=== PATIENT | female | born 1955 | race Caucasian/White ===

== ENCOUNTER 2022-02-07 10:26 | Inpatient (IN) | payer MEDICARE, OTHER, BC, SELFPAY ==
[2022-02-07] VITALS (21 sets, daily range): BP systolic 110–175; BP diastolic 55–113; PULSE 70–87; RESP 13–20; TEMP 36.3–37.1; O2SAT 90–99; BMI 33.0; BMI 34.0
--- NOTE | 2022-02-07 | SCC_ITS ---
Procedure done: Open reduction internal fixation left intertrochanteric and subtrochanteric femur fractures with bone biopsy 301.0 seconds of fluoroscopic guidance, for a cumulative dose of 48.14 mGy, was provided to Dr. Harper by the radiology department. C-arm images of the LEFT hip were saved for the patient's permanent record. [id number]
--- NOTE | 2022-02-07 10:44 | CTR_ITS ---
PROCEDURE INFORMATION: Exam: CT Head Without Contrast Exam date and time: 02/07/2022 11:19 AM Age: 66 years old Clinical indication: Injury or trauma; Fall; Blunt trauma (contusions or hematomas); Without loss of consciousness; Additional info: Closed head injury TECHNIQUE: Imaging protocol: Computed tomography of the head without contrast. Axial, coronal and sagittal reformatted images were created and reviewed. Radiation optimization: All CT scans at this facility use at least one of these dose optimization techniques: automated exposure control; mA and/or kV adjustment per patient size (includes targeted exams where dose is matched to clinical indication); or iterative reconstruction. COMPARISON: No relevant prior studies available. RADIATION DOSE METRICS: Total DLP (mGy-cm): 835.09 FINDINGS: Brain: Patchy and confluent areas of hypoattenuation in the periventricular and subcortical white matter, consistent with chronic small vessel ischemic disease. Focal, well-circumscribed hypodensity in the left inferior basal ganglia, consistent with a dilated perivascular space or chronic lacunar infarct. No CT evidence of acute intracranial hemorrhage or acute territorial infarction. No significant mass effect or midline shift. Basal cisterns patent. Cerebral ventricles: Prominence of the cortical sulci, cisterns and ventricular system, consistent with cerebral and cerebellar volume loss. Paranasal sinuses: Mild ethmoid mucosal thickening. No fluid levels. Mastoid air cells: Grossly unremarkable. Vasculature: Mild calcific atherosclerotic disease in the cavernous internal carotid arteries, as well as the vertebro-basilar system. Bones/joints: No acute osseous abnormality. Soft tissues: Grossly unremarkable. CT/CT head wo con* [id number] IMPRESSION: 1. No CT evidence of acute intracranial pathology. 2. Additional findings, as above.
--- NOTE | 2022-02-07 10:44 | XR_ITS ---
WS: [id number] Left hip, 2 views, 02/07/2022 Clinical Data: pain Comparison: None. Findings: There is a comminuted intertrochanteric fracture of the left hip. The left femoral head remains in th e acetabulum. The adjacent left pelvis shows no fractures. The left SI joint in the pubic symphysis a re normal. The soft tissues are normal. XR/XR hip LT 2-3V wo/w pel* [id number] Impression: Comminuted intertrochanteric fracture of the left hip.
--- NOTE | 2022-02-07 10:44 | CTR_ITS ---
PROCEDURE INFORMATION: Exam: CT Cervical Spine Without Contrast Exam date and time: 02/07/2022 11:23 AM Age: 66 years old Clinical indication: Injury or trauma; Fall; Blunt trauma TECHNIQUE: Imaging protocol: Computed tomography images of the cervical spine without contrast. Axial, coronal and sagittal reformatted images were created and reviewed. Radiation optimization: All CT scans at this facility use at least one of these dose optimization techniques: automated exposure control; mA and/or kV adjustment per patient size (includes targeted exams where dose is matched to clinical indication); or iterative reconstruction. COMPARISON: CT head wo con* [id number] 02/07/2022 11:19 AM RADIATION DOSE METRICS: Total DLP (mGy-cm): 828.64 FINDINGS: Bones/joints: Straightening of the normal cervical lordosis. No CT evidence of acute fracture, dislocation or subluxation. Alignment anatomic. Vertebral body heights maintained. Discs/Spinal canal/Neural foramina: Mild multilevel degenerative changes, characterized by disc space narrowing, osteophytosis and uncovertebral and facet joint hypertrophy. No significant spinal canal stenosis. Mild neural foraminal narrowing at C5-C6 and C6-C7 on the right. Lungs: Grossly unremarkable. Soft tissues: Grossly unremarkable. CT/CT cervical spin wo con* [id number] IMPRESSION: 1. No CT evidence of acute cervical spine traumatic injury. 2. Additional findings, as above.
--- NOTE | 2022-02-07 10:48 | ED_ITS ---
HPI - Fall General: Chief Complaint: Fall Stated Complaint: fall from horse/ L leg injury Time Seen by Provider: 02/07/22 10:29 Source: patient Mode of arrival: EMS Limitations: no limitations History of Present Illness: 66-year-old female was thrown from a horse this morning complaining of left hip pain low back discomfort. She is was wearing a helmet she does not strike her head there is no loss consciousness c-collar placed on arrival here. Obvious deformity of the left leg consistent with left hip fracture MD complaint: fall Onset (ago): minute(s) Fall from: other (thrown from a horse) Fall witnessed: no Loss of consciousness: None Length of LOC: second(s) Prolonged down time: no Symptoms prior to fall: none Context: other (thrown from horse) Location of injury: head Severity: severe Associated symptoms-after fall: Denies abdominal pain or chest pain Review of Systems Const: Denies: fever(s), chills, body aches, change in appetite, fatigue or malaise ENMT: Denies: throat pain, ear or mastoid pain, nasal discharge or nasal congestion Card: Denies: chest pain, edema, dyspnea on exertion or orthopnea Resp: Denies: dyspnea, productive cough or non-productive cough GI: Denies: abdominal pain, nausea, vomiting, hematemesis, coffee ground emesis, diarrhea, constipation, bloating, hematochezia or melena : Denies: flank pain, difficulty voiding, dysuria, urinary frequency or urinary urgency Skin/Breast: Denies: rash or pruritus PFSH ED PFSH: Medical History Arthritis involving multiple sites GERD (gastroesophageal reflux disease) 0 Jose Juan's disease Hypothyroidism Obstructive sleep apnea on CPAP Sjogrens syndrome Surgical History History of lumpectomy of left breast S/P left knee arthroscopy meniscal tear Family History Mother CAD (coronary artery disease) Diabetes Lung disease asthma, smoked Hypothyroidism Father Alzheimer's dementia Hypertension Social History Smoking and tobacco status: never smoked Alcohol intake: never Substance/Drug Use: never Physical Exam Const: COMMON NORMALS: no acute distress GENERAL APPEARANCE: cooperative a nd comfortable ORIENTATION/CONSCIOUSNESS: Yes awake, Yes oriented to person, Yes oriented to place and Yes oriented to time HENMT: COMMON NORMALS: normocephalic, atraumatic, hearing grossly normal bilaterally, external ears normal, EAC's normal, TM's normal bilaterally, Normal nasal mucous membranes and turbinates present, moist oral mucous membranes and oropharynx normal HEAD & SCALP: normocephalic and atraumatic NOSE: Normal nasal mucous membranes and turbinates present EXTERNAL EAR: Yes external ears normal EXTERNAL AUDITORY CANAL: EAC's normal TYMPANIC MEMBRANE: TM's normal bilaterally Neck/C-Spine: COMMON NORMALS: no JVD Resp: COMMON NORMALS: normal respiratory effort, No retractions, No use of accessory muscles and clear to auscultation bilaterally AUSCULTATION: clear to auscultation bilaterally Cardio: COMMON NORMALS: no JVD, regular rate, regular rhythm and No murmurs present (Cardio) RATE: regular rate RHYTHM: regular rhythm GI: COMMON NORMALS: Soft to palpation and No hepatosplenomegaly present AUSCULTATION: Yes normoactive bowel sounds PALPATION: Yes Soft to palpation, No Tenderness to palpation present (GI), No Guarding due to palpation present (GI) and Yes No hepatosplenomegaly present Extremity: OTHER: Externally rotated left hip with significant shortening dorsalis pedis pulse posterior tibialis pulse palpable capillary refill good neurovascularly intact Neuro: SENSORIUM/ORIENTATION: Yes oriented to person, Yes oriented to place and Yes oriented to time Skin: COMMON NORMALS: no rashes or lesions noted GENERAL SKIN EXAM: no rashes or lesions noted Course Vital Signs: Vital signs: Vital Signs Temperature 97.6 F 02/08/22 08:00 Pulse Rate 77 02/08/22 08:00 Respiratory Rate 20 H 02/08/22 08:22 Blood Pressure 112/67 02/08/22 08:00 Pulse Oximetry 98 02/08/22 08:00 MDM - Fall Medical Decision Making Left intertrochanteric hip fracture comminuted. No other injuries. Discussed with hospitalist and with Ortho orders written. Medical Records I reviewed the patient's medical records. Lab Data I reviewed the patient's lab results. : 02/08/22 02:48 02/08/22 02:48 Radiology Impressions Cervical Spine CT 02/07/22 10:[address]: [address] evidence of acute cervical spine traumatic injury. 2. Additional findings, as above. Head CT 02/07/22 10:[address]: 1[address] evidence of acute intracranial pathology. 2. Additional findings, as above. Hip/Pelvis X-Ray 02/07/22 10:44 Impression: Comminuted intertrochanteric fracture of the left hip. Laboratory Results WBC 5.8 10^3/uL (4.0-10.0) 02/07/22 10:32 RBC 4.66 10^6/uL (4.1-5.3) 02/07/22 10:32 Hgb 13.2 g/dL (11.5-15.3) 02/07/22 10:32 Hct 39.7 % (37.0-47.0) 02/07/22 10:32 MCV 85.2 fl (81-99) 02/07/22 10:32 MCH 28.3 pg (28.0-34.0) 02/07/22 10:32 MCHC 33.2 g/dL (30.0-36.0) 02/07/22 10:32 RDW 12.4 % (12.1-15.1) 02/07/22 10:32 Plt Count 148 10^3/cmm (130-400) 02/07/22 10:32 MPV 10.4 fL (7.4-10.4) 02/07/22 10:32 Neut % (Auto) 82.7 % 02/07/22 10:32 Lymph % (Auto) 9.7 % 02/07/22 10:32 [place] % (Auto) 5.9 % 02/07/22 10:32 Eos % (Auto) 0.5 % 02/07/22 10:32 Baso % (Auto) 0.2 % 02/07/22 10:32 Neut # (Auto) 4.76 10^3/uL (1.8-7.7) 02/07/22 10:32 Lymph # (Auto) 0.6 10^3/uL (0.8-4.8) L 02/07/22 10:32 [place] # (Auto) 0.3 10^3/uL (0.2-0.9) 02/07/22 10:32 Eos # (Auto) 0.0 10^3/uL (0.0-0.8) 02/07/22 10:32 Baso # (Auto) 0.0 10^3/uL (0.0-0.1) 02/07/22 10:32 Nucleated RBC % (auto) 0 % 02/07/22 10:32 Nucleated RBCs # 0.0 /100WBC 02/07/22 10:32 PT 13.50 SECONDS (12.1-14.9) 02/07/22 11:42 INR 1.00 (0.8-1.2) 02/07/22 11:42 APTT 33.3 SECONDS (23.9-36.7) 02/07/22 11:42 Sodium 139 mmol/L (136-145) 02/07/22 10:32 Potassium 4.1 mmol/L (3.5-5.1) 02/07/22 10:32 Chloride 104 mmol/L (98-107) 02/07/22 10:32 Carbon Dioxide 27 mmol/L (22-29) 02/07/22 10:32 Anion Gap 12.1 (5-19) 02/07/22 10:32 BUN 16 mg/dL (8-23) 02/07/22 10:32 Creatinine 0.7 mg/dL (0.5-0.9) 02/07/22 10:32 GFR Calculation 83.7 mL/min (90-130) L 02/07/22 10:32 Glucose 102 mg/dL (65-115) 02/07/22 10:32 Calculated Osmolality 289 mOsm/kg (285-295) 02/07/22 10:32 Calcium 8.6 mg/dL (8.5-10.5) 02/07/22 10:32 Total Bilirubin 0.3 mg/dL (0.15-1.2) 02/07/22 10:32 AST 30 U/L (0-32) 02/07/22 10:32 ALT 29 U/L (0-33) 02/07/22 10:32 Alkaline Phosphatase 103 IU/L (35-105) 02/07/22 10:32 Total Protein 7.6 g/dL (6.6-8.7) 02/07/22 10:32 Albumin 4.8 g/dL (3.5-5.2) 02/07/22 10:32 Globulin 2.8 g/dL (1.3-4.6) 02/07/22 10:32 Discharge Plan Discharge Patient Disposition: Admitted As Inpatient Admit Provider: Day Vargas Clinical Impression: Closed intertrochanteric fracture of left hip, Sjogrens syndrome, Hypothyroidism, Obstructive sleep apnea on CPAP, Fall from horse Condition: Stable Coding Level of Care Code ED Artists' Model for Sobeida Vigil
[2022-02-07 10:53] LABS: Basophils % 0.2 %; Eosinophils % 0.5 %; Hematocrit 39.7 % (37.0-47.0); Hemoglobin 13.2 g/dL (11.5-15.3); Lymphocytes # 0.6 10^3/uL (0.8-4.8); Lymphocytes % 9.7 %; Mean Corpuscular HGB Conc 33.2 g/dL (30.0-36.0); Mean Corpuscular Hemoglobin 28.3 pg (28.0-34.0); Mean Corpuscular Volume 85.2 fl (81-99); Mean Platelet Volume 10.4 fL (7.4-10.4); Monocytes # 0.3 10^3/uL (0.2-0.9); Monocytes % 5.9 %; Neutrophils # 4.76 10^3/uL (1.8-7.7); Neutrophils % 82.7 %; Nucleated Red Blood Cells % 0 %; Platelet Count 148 10^3/cmm (130-400); Red Blood Count 4.66 10^6/uL (4.1-5.3); Red Cell Distribution Width 12.4 % (12.1-15.1); White Blood Count 5.8 10^3/uL (4.0-10.0)
[2022-02-07] MEDS: morphine 4 mg/mL SDV 1 mL IVP (10:55)
[2022-02-07] MEDS: ondansetron 2 mg/ML SDV 2 mL 4 MG IVP (10:56)
--- NOTE | 2022-02-07 11:20 | ECG_ITS ---
Test Date: 2022-02-07 Pat Name: Joselyn Valdez Department: Room: Gender: Female Soil Specialist: : 1955 Requested By: Altaf Dozier Order Number: [id number] Saeed MD: Lucien Reyes M.D. Measurements Intervals [place] Rate: 72 P: 42 FL: 154 QRS: 0 QRSD: 87 T: 11 QT: 365 QTc: 400 Interpretive Statements SINUS RHYTHM LOW QRS VOLTAGE IN PRECORDIAL LEADS [QRS DEFLECTION < 1.0 mV IN CHEST LEADS] No previous ECG available for comparison Electronically Signed On 02-07-2022 16:53:33 CDT by Lucien Reyes M.D. [id number]
[2022-02-07 11:23] LABS: Alanine Aminotransferase 29 U/L (0-33); Albumin Level 4.8 g/dL (3.5-5.2); Alkaline Phosphatase 103 IU/L (35-105); Anion Gap 12.1 (5-19); Aspartate Amino Transferase 30 U/L (0-32); Blood Urea Nitrogen 16 mg/dL (8-23); Calcium 8.6 mg/dL (8.5-10.5); Carbon Dioxide 27 mmol/L (22-29); Chloride 104 mmol/L (98-107); Creatinine Clr Calc Pharmacy 65.9921; Globulin 2.8 g/dL (1.3-4.6); Glomerular Filtration Rate 83.7 mL/min (90-130); Glucose 102 mg/dL (65-115); Osmolality Calculated 289 mOsm/kg (285-295); Potassium 4.1 mmol/L (3.5-5.1); Sodium 139 mmol/L (136-145); Total Bilirubin 0.3 mg/dL (0.15-1.2); Total Protein 7.6 g/dL (6.6-8.7)
--- NOTE | 2022-02-07 11:28 | PC.PHAR ---
pt states she takes care of her own medications- pt states she takes the medications entered-pt states she gets her meds from the [facility] in [place] [phone] waiting for [facility] to fax med list
[2022-02-07 12:16] LABS: Partial Thromboplastin Time 33.3 SECONDS (23.9-36.7)
[2022-02-07] MEDS: morphine 4 mg/mL SDV 1 mL 6 MG IVP (12:54)
--- NOTE | 2022-02-07 12:59 | PC.NURSE ---
Physician verbally approved request to remove C collar. C spine clear. C collar removed at this time.
--- NOTE | 2022-02-07 14:31 | PM.CONSULT ---
Providers/Reason For Consult Consulting Physician/Specialty*: Joselyn Harper MD Reason for Consult*: Left hip intertrochanteric fracture Requesting Physician: Altaf Ya MD Attending Physician: Joselyn Harper MD History of Present Illness History of Present Illness Joselyn Valdez is a 66 year old female presented by ambulance to the emergency department after being thrown from a horse. The patient presented with inability to ambulate and significant pain in her left lower extremity. She is uncertain as to whether or not the horse bucked her off, but she describes landing on her hip unable to move her right left lower extremity. She had severe pain and the EMS was called. She was admitted to the hospitalist team as she does have obstructive sleep apnea for which she uses a sleep apnea. She has hypothyroidism, and she also has a history of Sjogren's syndrome. I was consulted with regards to her left comminuted intertrochanteric hip fracture. Review of Systems Const: Denies: fever(s) or chills Eyes: Reports: dry eyes ENMT: Reports: dry mouth and nasal congestion (Allergy symptoms) Card: Denies: chest pain, palpitations, edema, syncope, dyspnea on exertion or orthopnea Resp: Denies: dyspnea, productive cough or non-productive cough GI: Denies: abdominal pain, nausea, vomiting, diarrhea, constipation or hematochezia : Denies: difficulty voiding Musc: Reports: extremity pain (Left lower extremity and hip pain), joint pain (Improving right elbow pain, had MRI within the last couple months) and other (Hands, knees and low back involvement with arthritis) Skin/Breast: Reports: dry skin Neuro: Denies: weakness in extremities, sensory changes or difficulty walking (Prior to fracturing her hip) Psych: Denies: memory loss Kenn/Lymph: Denies: easy bruising or easy bleeding Medications/Allergies Home Medications Medication Instructions Recorded Confirmed Last Taken Type [place] 3 1 cap PO DAILY 02/07/22 02/07/22 Unknown History acetaminophen 500 mg tablet 1,000 mg PO BID 02/07/22 02/07/22 Unknown History bacillus coagulans-inulin 1 2 cap PO DAILY 02/07/22 02/07/22 Unknown History billion cell-250 mg capsule (Probiotic with Prebiotic) coenzyme Q10 100 mg capsule 100 mg PO DAILY 02/07/22 02/07/22 Unknown History (CoQ-10) glucosamine-chondroitin 250 mg-200 2 tab PO DAILY 02/07/22 02/07/22 Unknown History mg tablet (Osteo Bi-Flex) levothyroxine 112 mcg tablet 112 mcg PO QAM 02/07/22 02/07/22 Unknown History (Synthroid) loratadine 10 mg tablet (Claritin) 10 mg PO DAILY 02/07/22 02/07/22 Unknown History magnesium oxide 400 mg PO BEDTIME 02/07/22 02/07/22 Unknown History multivitamin with minerals-folic 2 tab PO DAILY 02/07/22 02/07/22 Unknown History acid 200 mcg chewable tablet (Adult Multivitamin Gummies) naproxen 375 mg tablet 375 mg PO BID 02/07/22 02/07/22 Unknown History omeprazole 20 mg capsule,delayed 20 mg PO DAILY 02/07/22 02/07/22 Unknown History release vit C 250 mg-vit E 90 mg-zinc 40 1 tab PO BID 02/07/22 02/07/22 Unknown History mg-copper 1 rl-blbldm-qehdle capsule (PreserVision AREDS-2) Allergies Allergy/AdvReac Type Severity Reaction Status Date / Time sulfamethoxazole Allergy ALGY-Anaphy Verified 02/07/22 11:06 [From Bactrim] laxis trimethoprim [From Bactrim] Allergy ALGY-Anaphy Verified 02/07/22 11:06 laxis PFSH Acute PFSH: Medical History Arthritis involving multiple sites GERD (gastroesophageal reflux disease) 0 Jose Juan's disease Hypothyroidism Obstructive sleep apnea on CPAP Sjogrens syndrome Surgical History History of lumpectomy of left breast S/P left knee arthroscopy meniscal tear Family History Mother CAD (coronary artery disease) Diabetes Lung disease asthma, smoked Hypothyroidism Father Alzheimer's dementia Hypertension Social History Smoking and tobacco status: never smoked Alcohol intake: never Substance/Drug Use: never Vitals/I&O/Wt Last Vital Signs Temp 97.9 F 02/07/22 10:29 Pulse 75 02/07/22 10:41 Resp 16 02/07/22 12:54 BP 111/66 02/07/22 13:00 Pulse Ox 94 02/07/22 13:00 Weight last 48 hrs Weight 175 lb Physical Exam Const: COMMON NORMALS: no acute distress, average body habitus, patient oriented x3 and alert GENERAL APPEARANCE: cooperative and comfortable ORIENTATION/CONSCIOUSNESS: Yes awake HENMT: COMMON NORMALS: normocephalic and atraumatic HEAD & SCALP: normocephalic and atraumatic Eye: GENERAL EYE: appearance normal, both eyes and all related structures Chest: COMMONS NORMALS: normal inspection of the chest Resp: COMMON NORMALS: normal respiratory effort EFFORT & INSPECTION: Yes able to speak in complete sentences and Yes symmetric chest movement Extremity: LEFT LOWER EXTREMITY: Yes hip joint (Shortened and externally rotated lower extremity) Left hip: Yes inspection (No significant bruising.), Yes palpation (Tender to palpation.), Yes ROM (Not evaluated secondary to fracture.) and Yes neurovascular exam (Intact distally.) Neuro: COMMON NORMALS: patient oriented x3 SENSORIUM/ORIENTATION: Yes alert Psych: COMMON NORMALS: mental status grossly normal APPEARANCE: Yes grossly normal ATTITUDE: Yes calm and Yes engaged ATTENTION/CONCENTRATION: Yes attention grossly intact Skin: COMMON NORMALS: no rashes or lesions noted GENERAL SKIN EXAM: no rashes or lesions noted Data : 02/07/22 10:32 02/07/22 10:32 Xray Ortho: I personally reviewed and interpreted this imaging study as follows: My impression: The patient has a comminuted intertrochanteric hip fracture with subtrochanteric component. The greater trochanter is severely comminuted. There is shortening. A&P Assessment and plan (1) Closed intertrochanteric fracture of left hip: Patient has a closed intertrochanteric left hip fracture with severe comminution. This occurred after she was thrown from a horse. She was seen and evaluated by the hospitalist team for admission. Plans were made to have her have operative intervention today. Patient is normally active. Risks and complications including leg shortening and nonunion are discussed with the patient. She understands. She is consented for the surgical procedure. Status: Acute Qualifiers: Encounter type: initial encounter Fracture alignment: displaced Qualified Code(s): S72.142A - Displaced intertrochanteric fracture of left femur, initial encounter for closed fracture Consult Attestations Medical Necessity Statement: Patient requires hospitalization for comminuted left intertrochanteric fracture with subtrochanteric component. Coding Level of Care Code Acute [employer] for [facility] Diagnoses Closed intertrochanteric fracture of left hip S72.142A Encounter type: initial encounter Fracture alignment: displaced
[2022-02-07] MEDS: D5-NS 0.45% + KCL 20 mEq 20 MEQ/1,000 ML BAG 100 MEQ IV (15:09)
--- NOTE | 2022-02-07 15:25 | P.HP_ITS ---
Providers/Chief Complaint Admitting Physician: Day Vargas MD Primary Care Provider: Dr Livingston at [facility] in [place], [place] Chief Complaint: fall from horse/ L leg injury History of Present Illness Joselyn Valdez is a 66 year old female who presented to the emergency room via ambulance with complaint of pain in her left lower extremity. She has 3 horses there and was getting one of her arena horses, Regina Alferd, 5 yrs old, out for a trail ride. While Sherrie may have been willing to consider the trail ride, she did not apparently want Mrs. Valdez riding upon her back. Sherrie bucked and Ms. Valdez did not even get one leg over the saddle. She is not sure how she landed but she ended up on her right hip unable to move her left lower extremity. There were people nearby who came to her aid within a couple of minutes. Her left lower extremity was externally rotated and shortened and after she came down from the shock of what it happened she had severe pain. The horse does not normally behave like this. EMS was called. Hip fracture was confirmed on evaluation in the emergency room. Orthopedics has been consulted. Patient is being admitted for surgical intervention and other care as needed. She is normally fairly active and attends to her own activities of daily living without assistance. No recent chest pain or dyspnea on exertion. She has never had any problems with anesthesia. Has had 2 prior surgeries. No known bleeding or clotting problems, kidney problems. She does have a history of sleep apnea and utilizes CPAP. She has a history of Jose Juan's/hypothyroidism for which she is currently on levothyroxine. She also has Sjogren's syndrome with dry eyes and dry mouth. Has some arthritis multiple joints but does not sound like it is necessary inflammatory arthritis. She is not on any agents for treatment beyond naproxen and lubricants/hard candies respectively for her eyes and mouth. No anticoagulant use or other antiplatelet agents. Last oral intake was earlier today. Review of Systems Const: Denies: fever(s) or chills Eyes: Reports: dry eyes ENMT: Reports: dry mouth and nasal congestion (Allergy symptoms) Card: Denies: chest pain, palpitations, edema, syncope, dyspnea on exertion or orthopnea Resp: Denies: dyspnea, productive cough or non-productive cough GI: Denies: abdominal pain, nausea, vomiting, diarrhea, constipation or hematochezia : Denies: difficulty voiding Musc: Reports: extremity pain (Left lower extremity and hip pain), joint pain (Improving right elbow pain, had MRI within the last couple months) and other (Hands, knees and low back involvement with arthritis) Skin/Breast: Reports: dry skin Neuro: Denies: weakness in extremities, sensory changes or difficulty walking (Prior to fracturing her hip) Psych: Denies: memory loss Kenn/Lymph: Denies: easy bruising or easy bleeding Medications/Allergies Home Medications Medication Instructions Recorded Confirmed Last Taken Type [place] 3 1 cap PO DAILY 02/07/22 02/07/22 Unknown History acetaminophen 500 mg tablet 1,000 mg PO BID 02/07/22 02/07/22 Unknown History bacillus coagulans-inulin 1 2 cap PO DAILY 02/07/22 02/07/22 Unknown History billion cell-250 mg capsule (Probiotic with Prebiotic) coenzyme Q10 100 mg capsule 100 mg PO DAILY 02/07/22 02/07/22 Unknown History (CoQ-10) glucosamine-chondroitin 250 mg-200 2 tab PO DAILY 02/07/22 02/07/22 Unknown History mg tablet (Osteo Bi-Flex) levothyroxine 112 mcg tablet 112 mcg PO QAM 02/07/22 02/07/22 Unknown History (Synthroid) loratadine 10 mg tablet (Claritin) 10 mg PO DAILY 02/07/22 02/07/22 Unknown History magnesium oxide 400 mg PO BEDTIME 02/07/22 02/07/22 Unknown History multivitamin with minerals-folic 2 tab PO DAILY 02/07/22 02/07/22 Unknown History acid 200 mcg chewable tablet (Adult Multivitamin Gummies) naproxen 375 mg tablet 375 mg PO BID 02/07/22 02/07/22 Unknown History omeprazole 20 mg capsule,delayed 20 mg PO DAILY 02/07/22 02/07/22 Unknown History release vit C 250 mg-vit E 90 mg-zinc 40 1 tab PO BID 02/07/22 02/07/22 Unknown History mg-copper 1 [id number] capsule (PreserVision AREDS-2) Allergies Allergy/AdvReac Type Severity Reaction Status Date / Time sulfamethoxazole Allergy ALGY-Anaphy Verified 02/07/22 11:06 [From Bactrim] laxis trimethoprim [From Bactrim] Allergy ALGY-Anaphy Verified 02/07/22 11:06 laxis PFSH Acute PFSH: Medical History (Updated 02/07/22 @ 16:23 by Day Vargas MD) Arthritis involving multiple sites GERD (gastroesophageal reflux disease) 0 Jose Juan's disease Hypothyroidism Obstructive sleep apnea on CPAP Sjogrens syndrome Surgical History (Updated 02/07/22 @ 15:55 by Day Vargas MD) History of lumpectomy of left breast S/P left knee arthroscopy meniscal tear Family History (Updated 02/07/22 @ 15:57 by Day Vargas MD) Mother CAD (coronary artery disease) Diabetes Lung disease asthma, smoked Hypothyroidism Father Alzheimer's dementia Hypertension Social History (Updated 02/07/22 @ 15:57 by Day Vargas MD) Smoking and tobacco status: never smoked Alcohol intake: never Substance/Drug Use: never Vitals/I&O/Wt Last Vital Signs Temp 97.9 F 02/07/22 10:29 Pulse 75 02/07/22 10:41 Resp 16 02/07/22 12:54 BP 111/66 02/07/22 13:00 Pulse Ox 94 02/07/22 13:00 Weight last 48 hrs Weight 81.647 kg Weight 79.379 kg Physical Exam Narrative: Constitutional: Awake and alert, cooperative, looks younger than stated age HEENT: Normocephalic, atraumatic, extraocular movements are intact, dry lips and oral mucosa Neck: Supple, nontender Respiratory: Clear to auscultation bilaterally Cardiovascular: Regular rate and rhythm, no murmurs Abdomen: Soft, nontender, positive bowel sounds Extremities: Left lower extremity externally rotated and shortened, no edema Skin: Dry skin Neuro: Speech clear, face symmetric, moves all extremities there are decreased left lower extremity due to fracture Psych: Normal affect Data : 02/07/22 10:32 02/07/22 10:32 Other Labs: Radiology Impressions Cervical Spine CT 02/07/22 10:[address]: [address] evidence of acute cervical spine traumatic injury. 2. Additional findings, as above. Head CT 02/07/22 10:[address]: 1[address] evidence of acute intracranial pathology. 2. Additional findings, as above. Hip/Pelvis X-Ray 02/07/22 10:44 Impression: Comminuted intertrochanteric fracture of the left hip. Laboratory Results WBC 5.8 10^3/uL (4.0-10.0) 02/07/22 10:32 RBC 4.66 10^6/uL (4.1-5.3) 02/07/22 10:32 Hgb 13.2 g/dL (11.5-15.3) 02/07/22 10:32 Hct 39.7 % (37.0-47.0) 02/07/22 10:32 MCV 85.2 fl (81-99) 02/07/22 10:32 MCH 28.3 pg (28.0-34.0) 02/07/22 10:32 MCHC 33.2 g/dL (30.0-36.0) 02/07/22 10:32 RDW 12.4 % (12.1-15.1) 02/07/22 10:32 Plt Count 148 10^3/cmm (130-400) 02/07/22 10:32 MPV 10.4 fL (7.4-10.4) 02/07/22 10:32 Neut % (Auto) 82.7 % 02/07/22 10:32 Lymph % (Auto) 9.7 % 02/07/22 10:32 Boundary % (Auto) 5.9 % 02/07/22 10:32 Eos % (Auto) 0.5 % 02/07/22 10:32 Baso % (Auto) 0.2 % 02/07/22 10:32 Neut # (Auto) 4.76 10^3/uL (1.8-7.7) 02/07/22 10:32 Lymph # (Auto) 0.6 10^3/uL (0.8-4.8) L 02/07/22 10:32 Boundary # (Auto) 0.3 10^3/uL (0.2-0.9) 02/07/22 10:32 Eos # (Auto) 0.0 10^3/uL (0.0-0.8) 02/07/22 10:32 Baso # (Auto) 0.0 10^3/uL (0.0-0.1) 02/07/22 10:32 Nucleated RBC % (auto) 0 % 02/07/22 10:32 Nucleated RBCs # 0.0 /100WBC 02/07/22 10:32 PT 13.50 SECONDS (12.1-14.9) 02/07/22 11:42 INR 1.00 (0.8-1.2) 02/07/22 11:42 APTT 33.3 SECONDS (23.9-36.7) 02/07/22 11:42 Sodium 139 mmol/L (136-145) 02/07/22 10:32 Potassium 4.1 mmol/L (3.5-5.1) 02/07/22 10:32 Chloride 104 mmol/L (98-107) 02/07/22 10:32 Carbon Dioxide 27 mmol/L (22-29) 02/07/22 10:32 Anion Gap 12.1 (5-19) 02/07/22 10:32 BUN 16 mg/dL (8-23) 02/07/22 10:32 Creatinine 0.7 mg/dL (0.5-0.9) 02/07/22 10:32 GFR Calculation 83.7 mL/min (90-130) L 02/07/22 10:32 Glucose 102 mg/dL (65-115) 02/07/22 10:32 Calculated Osmolality 289 mOsm/kg (285-295) 02/07/22 10:32 Calcium 8.6 mg/dL (8.5-10.5) 02/07/22 10:32 Total Bilirubin 0.3 mg/dL (0.15-1.2) 02/07/22 10:32 AST 30 U/L (0-32) 02/07/22 10:32 ALT 29 U/L (0-33) 02/07/22 10:32 Alkaline Phosphatase 103 IU/L (35-105) 02/07/22 10:32 Total Protein 7.6 g/dL (6.6-8.7) 02/07/22 10:32 Albumin 4.8 g/dL (3.5-5.2) 02/07/22 10:32 Globulin 2.8 g/dL (1.3-4.6) 02/07/22 10:32 12 Lead EKG sinus rhythm [address] or t wave changes per my interpretation A&P Assessment and plan (1) Fall from horse: Status: Acute Qualifiers: Encounter type: initial encounter Qualified Code(s): V80.010A - Animal- rider injured by fall from or being thrown from horse in noncollision accident, initial encounter (2) Closed intertrochanteric fracture of left hip: Status: Acute Qualifiers: Encounter type: initial encounter Fracture alignment: displaced Qualified Code(s): S72.142A - Displaced intertrochanteric fracture of left femur, initial encounter for closed fracture (3) Obstructive sleep apnea on CPAP: Status: Chronic (4) Sjogrens syndrome: Definitely has keratoconjunctivitis. Has arthritis of multiple joints but I am not clear on whether or not it has been determined that these are inflammatory arthritides. 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 Qualified Code(s): E03.8 - Other specified hypothyroidism; E06.3 - Autoimmune thyroiditis (6) BMI 34.0-34.9,adult: Status: Acute Plan Inpatient admission Orthopedics consultation for intervention Arana catheter perioperatively Pain control Stool softener/laxatives Continue home CPAP Natural tears and Biotene Continue home levothyroxine Continue home probiotic and PPI Continue home Claritin Anticipate resumption of Naprosyn as part of overall pain regimen versus other NSAID postoperatively SCDs for DVT prophylaxis currently with initiation of pharmacological DVT prophylaxis postop PT and OT postoperatively Case management consultation for assistance with discharge planning, anticipate she will probably require short-term rehabilitation in facility but we will see how she does postoperatively with therapies Supportive care otherwise Findings, concerns and plans were discussed with patient and she was given an opportunity to ask questions Briefly reviewed case with Dr. Harper who plans to take her to surgery today Full code Attestations Medical Necessity Statement*: Anticipated stay greater than 2 midnights in a patient with fall from a horse sustaining hip fracture that will require surgical intervention. 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
--- NOTE | 2022-02-07 16:23 | ANES.PREANE2 ---
Pre-Anesthetic Assessment Height/Weight: Height 1.55 m Weight 81.647 kg Temp Pulse Resp BP Pulse Ox 97.9 F 75 16 111/66 94 02/07/22 10:29 02/07/22 10:41 02/07/22 12:54 02/07/22 13:00 02/07/22 13:00 Preop Diagnosis: Left intertrochanteric hip fracture Operation Date: 02/07/22 16:50 Proposed Procedures p Trochanteric Femoral Nail(Left) - Joselyn Harper MD Familial anesthetic complications: NOne Was Beta Angelito taken within 24 hours: N/A Was Clonidine taken within 24 hours: N/A Social No alcohol and No tobacco Exam alert, oriented x 3, clear to auscultation bilaterally and regular rate & rhythm Airway Mallampati: Class II Dentition: full Pulmonary Sleep Apnea CV/HEM None reported None reported Hepatic None reported GI None reported Metabolic Thyroid Disease [facility] [place] sjogren's Neuropsych None reported Anesthetic Plan ASA status: 2 Anesthesia: General Risk of > 500 ml blood loss (7ml/kg in children): No Medications/Allergies Home Medications Medication Instructions Recorded Confirmed Last Taken Type [place] 3 1 cap PO DAILY 02/07/22 02/07/22 Unknown History acetaminophen 500 mg tablet 1,000 mg PO BID 02/07/22 02/07/22 Unknown History bacillus coagulans-inulin 1 2 cap PO DAILY 02/07/22 02/07/22 Unknown History billion cell-250 mg capsule (Probiotic with Prebiotic) coenzyme Q10 100 mg capsule 100 mg PO DAILY 02/07/22 02/07/22 Unknown History (CoQ-10) glucosamine-chondroitin 250 mg-200 2 tab PO DAILY 02/07/22 02/07/22 Unknown History mg tablet (Osteo Bi-Flex) levothyroxine 112 mcg tablet 112 mcg PO QAM 02/07/22 02/07/22 Unknown History (Synthroid) loratadine 10 mg tablet (Claritin) 10 mg PO DAILY 02/07/22 02/07/22 Unknown History magnesium oxide 400 mg PO BEDTIME 02/07/22 02/07/22 Unknown History multivitamin with minerals-folic 2 tab PO DAILY 02/07/22 02/07/22 Unknown History acid 200 mcg chewable tablet (Adult Multivitamin Gummies) naproxen 375 mg tablet 375 mg PO BID 02/07/22 02/07/22 Unknown History omeprazole 20 mg capsule,delayed 20 mg PO DAILY 02/07/22 02/07/22 Unknown History release vit C 250 mg-vit E 90 mg-zinc 40 1 tab PO BID 02/07/22 02/07/22 Unknown History mg-copper 1 [id number] capsule (PreserVision AREDS-2) Allergies Allergy/AdvReac Type Severity Reaction Status Date / Time sulfamethoxazole Allergy ALGY-Anaphy Verified 02/07/22 11:06 [From Bactrim] laxis trimethoprim [From Bactrim] Allergy ALGY-Anaphy Verified 02/07/22 11:06 laxis Current Medications Generic Name Dose Route Start Last Admin Trade Name Freq PRN Reason Stop Dose Admin Potassium Chloride/Dextrose/Sod Cl 20 meq in 1,000 mls @ 100 mls/hr 02/07/22 14:19 02/07/22 15:09 D5-Ns 0.45% + Kcl 20 Meq IV 100 mls/hr .Q10H KENDRA Administration PFSH Anesthesia Medical History (Updated 02/07/22 @ 16:23 by Day Vargas MD) Arthritis involving multiple sites GERD (gastroesophageal reflux disease) 0 Jose Juan's disease Hypothyroidism Obstructive sleep apnea on CPAP Sjogrens syndrome Surgical History (Updated 02/07/22 @ 15:55 by Day Vargas MD) History of lumpectomy of left breast S/P left knee arthroscopy meniscal tear Family History (Updated 02/07/22 @ 15:57 by Day Vargas MD) Mother CAD (coronary artery disease) Diabetes Lung disease asthma, smoked Hypothyroidism Father Alzheimer's dementia Hypertension Social History (Updated 02/07/22 @ 15:57 by Day Vargas MD) Smoking and tobacco status: never smoked Alcohol intake: never Substance/Drug Use: never Data Anesthesia : 02/07/22 10:32 02/07/22 10:32 Short CBC 02/07/22 Range/Units 10:32 WBC 5.8 (4.0-10.0) 10^3/uL Hgb 13.2 (11.5-15.3) g/dL Hct 39.7 (37.0-47.0) % MCV 85.2 (81-99) fl Plt Count 148 (130-400) 10^3/cmm Neut % (Auto) 82.7 % Neut # (Auto) 4.76 (1.8-7.7) 10^3/uL BMP 02/07/22 10:32 Sodium 139 Potassium 4.1 Chloride 104 Carbon Dioxide 27 BUN 16 Creatinine 0.7 Glucose 102 Calcium 8.6 Liver Function 02/07/22 Range/Units 10:32 Total Bilirubin 0.3 (0.15-1.2) mg/dL AST 30 (0-32) U/L ALT 29 (0-33) U/L Alkaline Phosphatase 103 (35-105) IU/L Albumin 4.8 (3.5-5.2) g/dL Coags 02/07/22 11:42 PT 13.50 INR 1.00 APTT 33.3 Cardiac Studies: No Data to Display
[2022-02-07] MEDS: sodium chloride 0.9% 1,000 ML 30 ML IV (17:38)
[2022-02-07] MEDS: acetaminophen 1,000 MG/100 ML PIGGYBACK 400 MG IV (17:38)
[2022-02-07] MEDS: fentaNYL 50 mcg/mL INJ 2mL IVP (17:50)
--- NOTE | 2022-02-07 19:51 | PC.NURSE ---
Report received from SHAN Black. Patient is off the unitfor surgical procedure at this time.
[2022-02-07] MEDS: ceFAZolin 1,000 mg SDV 1000 MG IRRIGATION (20:37)
--- NOTE | 2022-02-07 21:48 | XR_ITS ---
WS: [id number] C-ARM RADIOGRAPHS LEFT HIP; 11 IMAGES HISTORY: OR PICS COMPARISON: 02/07/2022 Intraoperative imaging during ORIF and intramedullary joycelyn placement of a comminuted displaced LEFT hi p fracture. Long intramedullary joycelyn and gamma nail are inserted. XR/XR hip LT 1V wo/w pel [id number] IMPRESSION: Intraoperative imaging during fixation and repair of the comminuted displaced L EFT hip fracture.
--- NOTE | 2022-02-07 22:29 | P.OP_ITS ---
Operative Report Date of procedure: February 07, 2022 Pre-op diagnosis: Left intertrochanteric hip fracture Post-op diagnosis: Left intertrochanteric hip fracture Post-op findings: Severely displaced and comminuted left intertrochanteric and subtrochanteric hip fracture with a bigger subtrochanteric component than initially appreciated. Severe lateral displacement of the femoral shaft Procedure done: Open reduction internal fixation left intertrochanteric and subtrochanteric femur fractures with bone biopsy Implants: The [place] gamma 3 trochanteric nail system with a long left 13 mm x 300 mm x 125 degree trochanteric nail with a size 10.5 mm x 100 mm lag screw. Specimens removed/disposition: Bone from fracture sent for pathology in formalin Pathology: Bone from fracture sent for pathology. Surgeon: Joselyn Harper Railroad Brakeman: [facility] operating room technicians Anesthesia: General (LMA, ASA 2) Estimated blood loss (mL): 400 IV fluids (mL): 1,000 Urine output (mL): 0 Complications: None Findings: Severely comminuted proximal left femur fracture with significant lateral dis placement of the femoral shaft. Severe comminution of the intertrochanteric and subtrochanteric areas of the femur. Shortening. Condition: stable Disposition: PACU (Then to floor) Brief History: Joselyn Valdez is a 66 year old female presented by ambulance to the emergency department after being thrown from a horse.? The patient presented with inability to ambulate and significant pain in her left lower extremity.? She is uncertain as to whether or not the horse bucked her off, but she describes landing on her hip unable to move her left lower extremity.? Oddly enough, she states that when she became aware if she was on the ground, she was laying on her right hip. She had severe pain and the EMS was called.? She was admitted to the hospitalist team as she does have obstructive sleep apnea for which she uses a sleep apnea.? She has hypothyroidism, and she also has a history of Sjogren's syndrome.? I was consulted with regards to her left comminuted intertrochanteric hip fracture. Surgical treatment options were discussed with the patient in the preop holding area. Evaluation was accomplished. Consents were signed. She was advised of potential nonunion, malunion, and shortening of the lower extremity as well as potential malrotation. Procedure: Patient is brought to the operating theater. After undergoing adequate general anesthesia with LMA, ASA 2, the patient was transferred to the fracture table, positioned on the table and fluoroscopic guidance obtained throughout the surgical procedure. Prior to the commencement of the surgical procedure, a surgical pause was performed. At the time of the surgical pause, we confirmed the site and side of surgery as well as preoperative surgical markings and appropriate and timely administration of IV antibiotics, Ancef 2 g. Availability of equipment was also confirmed. Fluoroscopy was used to confirm the fracture was appropriately reduced in both AP and lateral planes. Fracture reduction was quite difficult. Patient had significant lateral displacement of the femoral sh aft, and there was significant comminution involving the intertrochanteric area but also the greater trochanteric area and subtrochanteric area. This led to extreme difficulty in reduction of the fracture and subsequently and passage of the reduction device. An incision was then made slightly above the greater trochanter to allow access to the greater trochanter. An awl was used to enter the greater trochanter, but this area was noted to be quite comminuted, and actually, I could place my finger directly into the proximal femur. A guidewire was subsequently placed. Once the guidewire was confirmed to be in appropriate position in AP and lateral planes, reaming was accomplished over this to allow for the proximal diameter of the nail. Minimal reaming was required as there was really no proximal femur remaining. There was a shell of bone which was the remnant of the greater trochanter. Evaluation of the more proximal fragment demonstrated that there was a small curvature at the superior aspect of the neck consistent with the piriformis fossa, but the typical entry point of the nail was at the fracture site. Guidewire was measured for length. The nail chosen was to be a 13 mm diameter nail. Measurement demonstrated that a size 300 would be appropriate length. We did consider placement of an 11 mm nail, however, the shortest of these was a 320 mm. Sequential reaming was accomplished. We reamed to a size 15 to allow for placement of the nail. It was still somewhat tight. During the reaming process, we followed on fluoroscopy. The proximal incision had to be extended significantly to allow the whole gating system to pass beneath her skin as there was significant soft tissue in this area. Also, with the lateral displacement of the femur, compression across the gating device was necessary once we were ready to place appropriate hardware for the lag screw. A 13 mm by 300 mm x 180 degree trochanteric nail was placed over the guidewire. This was placed into appropriate position with positioning being confirmed in AP and lateral planes on the x-ray. It passed with difficulty. The guidewire was removed from the trochanteric nail. The jig system was then used to place the guide down onto the lateral femur for placement of the femoral head lag screw. An incision was made in the skin in this area. The jig was passed down onto the lateral femur through significant soft tissue. Guidewire was then passed through the jigging system into the femoral head. We wanted to be center or slightly inferior and posterior to center. Guidewire was placed into appropriate position also with difficulty. We had to push in on the entire jig system to allow the femur to be reduced medially into the area of the remaining femoral head and neck. Once the guidewire was in appropriate position and this position was confirmed by x-ray, the guidewire was then measured and we chose a 100 mm lag screw. Measurement of the lag screw was actually 115, but we had signif icant distraction even with full medial pressure. We reamed to allow for the lag screw to be placed. Given the lateral displacement and the significant comminution of this fracture without obvious evidence that the direct impaction was onto the left hip, reamings were sent to pathology. The 100 mm mm lag screw was then passed into the femoral head through the trochanteric nail. This was passed uneventfully and again position was confirmed in AP and lateral planes. Compression was obtained under fluoroscopic guidance while the femur was being reduced via lateral pressure. The set screw was then placed in position, tightened completely. Lag screw was left completely tightened secondary to the need for the reduction of the fracture. The construct was left in position and attention was directed distally. X-rays were again obtained. We had excellent fill of the femoral canal. The decision was made not to place a distal locking screw. Fluoroscopic images were then obtained both proximally and distally in AP and lateral planes. Finding these to be acceptable, attention was then directed to closure. The hip was copiously irrigated with normal saline with antibiotics. Following this it was dried and closed. Tensor fascia reggie was closed proximally with 0 Vicryl in an interrupted fashion. Subcutaneous tissues were closed with 2-0 Monocryl, and the skin was closed with skin emilie. This was then covered with Dermabond pernio and OpSite. The patient was removed from the fracture table and returned to recovery in satisfactory condition. The patient will be discharged to the floor for postoperative rehabilitation and pain management. There were no specimens obtained. Related Problem List Diagnoses (1) Closed intertrochanteric fracture of left hip:
[2022-02-07] MEDS: meperidine 50 mg/mL INJ 12.5 MG IVP (22:32)
[2022-02-07] MEDS: oxyCODONE 5 mg IR Tab/Cap PO (23:29)
[2022-02-07] MEDS: acetaminophen 325 mg Tablet 650 MG PO (23:30)
[2022-02-08] VITALS (13 sets, daily range): BP systolic 104–130; BP diastolic 64–82; PULSE 77–90; RESP 14–20; TEMP 36.4–37.6; O2SAT 91–98
[2022-02-08] MEDS: D5-NS 0.45% + KCL 20 mEq 20 MEQ/1,000 ML BAG 100 MEQ IV ×2 (00:01→13:27)
[2022-02-08] MEDS: oxyCODONE 5 mg IR Tab/Cap PO ×4 (03:24→17:18)
[2022-02-08 03:35] LABS: Basophils % 0.2 %; Eosinophils % 0.2 %; Hemoglobin 9.8 g/dL (11.5-15.3); Lymphocytes # 0.5 10^3/uL (0.8-4.8); Lymphocytes % 7.6 %; Mean Corpuscular HGB Conc 31.6 g/dL (30.0-36.0); Mean Corpuscular Hemoglobin 28.2 pg (28.0-34.0); Mean Corpuscular Volume 89.3 fl (81-99); Mean Platelet Volume 10.5 fL (7.4-10.4); Monocytes # 0.3 10^3/uL (0.2-0.9); Monocytes % 5.2 %; Neutrophils # 5.16 10^3/uL (1.8-7.7); Neutrophils % 86.5 %; Nucleated Red Blood Cells % 0 %; Platelet Count 135 10^3/cmm (130-400); Red Blood Count 3.47 10^6/uL (4.1-5.3); Red Cell Distribution Width 12.8 % (12.1-15.1)
[2022-02-08 03:54] LABS: Anion Gap 11.3 (5-19); Blood Urea Nitrogen 16 mg/dL (8-23); Calcium 8.1 mg/dL (8.5-10.5); Carbon Dioxide 22 mmol/L (22-29); Chloride 108 mmol/L (98-107); Glucose 171 mg/dL (65-115); Osmolality Calculated 289 mOsm/kg (285-295); Potassium 4.3 mmol/L (3.5-5.1); Sodium 137 mmol/L (136-145)
[2022-02-08] MEDS: HYDROcodone-acetaminophen 5-325 mg Tablet 1 TAB PO ×3 (06:25→14:25)
[2022-02-08] MEDS: levothyroxine 112 mcg Tablet PO (06:25)
[2022-02-08] MEDS: lactobacillus 1 Tablet 2 TAB PO (08:22)
[2022-02-08] MEDS: sennosides-docusate Tablet 2 TAB PO ×2 (08:23→17:19)
[2022-02-08] MEDS: pantoprazole DR 40 mg Tablet PO (08:23)
[2022-02-08] MEDS: aspirin 325 mg EC Tablet PO (08:23)
[2022-02-08] MEDS: calcium carb-vit d 600mg/400unit 1 Tablet 1 EACH PO ×2 (08:23→17:19)
[2022-02-08] MEDS: docusate sodium 100 mg Capsule PO ×2 (08:23→17:20)
[2022-02-08] MEDS: CELEcoxib 200 mg Capsule PO ×2 (08:23→17:18)
[2022-02-08] MEDS: loratadine 10 mg Tablet PO (08:24)
[2022-02-08] MEDS: sennosides-docusate Tablet 1 TAB PO ×2 (08:24→17:18)
--- NOTE | 2022-02-08 09:05 | XRR_ITS ---
PROCEDURE INFORMATION: Exam: XR Right Shoulder Exam date and time: 02/08/2022 9:28 AM Age: 66 years old Clinical indication: Injury or trauma; Other: Bucked off horse; Blunt trauma (contusions or hematomas); Shoulder; Right; Injury date: 02/07/22; Additional info: Shoulder pain TECHNIQUE: Imaging protocol: XR Right shoulder. Views: 2 or more views. COMPARISON: CT cervical spin wo con* [id number] 02/07/2022 11:23 AM FINDINGS: Bones/joints: Negative for acute fracture or focal bony abnormality. Soft tissues: Normal. XR/XR shoulder RT min 2V* [id number] IMPRESSION: No acute findings.
--- NOTE | 2022-02-08 10:36 | PC.CHAP ---
Pastoral Care Encounter/Spiritual Assessment Type of Contact [] Declined glass enamel mixer visit [] Patient/Family/Request visit [] Outpatient visit [] Follow-up visit [] Physician referral [] Code/Alert [x] Routine visit [] Staff referral [] Actively dying [] Patient sleeping [] Family support [] [] Out of room [] Palliative care [] [x] Receiving care in room [] Pre-surgical visit [] Trauma [] Long length of stay [] ICU visit [] Other: Relational/Emotional Strength [x] Patient feels connected with others/family/visitors/staff [] Distress [] Loneliness/isolation [] Abandonment Spirituality of Patient [x] Person of [place] [] Attends Temple of their [place] [x] Believes in Prayer [] Reads Bible or Anglican materials [] There are Spiritual issues to be addressed Quality Control Projectionist Interventions [x] Prayer [x] Active listening [x] Non-anxious presence [x] Spiritual/emotional support [] Crisis/trauma care [x] Spiritual counseling [] Bereavement support [] Provided bereavement packet [] Provided Bible/devotional materials [] Provided toy/stuffed animal, coloring book to patient or family member [] Provided Communion [] Anointing/[place] [] Salvation [x] Completed spiritual assessment [] Other: Impact on Illness or Injury [] Angry [] Fearful [x] Anxious [] Often cries [] Exhaustion [] Unable to work [] Unable to attend mu-ism [] Unable to walk/stand [] Unable to read [] Unable to drive [] Unable to eat/drink [] Unable to sleep [] Unable to be with family [] Patient intubated [] Other: Summary feel from horse has had back surgery pain in back and sholder well go home has some negitive fellings Time spent with patient 10 mins
[2022-02-08 13:40] LABS: Urine Appearance SL Hazy (CLEAR); Urine Color Yellow (Yellow); pH Urine 6 (5-7)
[2022-02-08 13:41] LABS: Leukocyte Esterase Urine 1+ (Negative); Specific Gravity, Urine 1.015 (1.005-1.030)
[2022-02-08 13:42] LABS: Add Urine Microscopic? YES; Bilirubin Urine Neg (Negative); Blood Urine Neg (Negative); Glucose Urine UA Norm (Normal); Ketones Urine Negative (Negative); Nitrate Urine Negative (Negative); Protein Urine Neg (Negative); Urobilinogen Urine Norm (Negative)
[2022-02-08 13:43] LABS: Bacteria Urine TNTC /hpf; RBC Urine 0-4 /hpf (0-2); Squamous Epithelial Cell Urine 0-4 /hpf (0-5); WBC Urine 40-55 /hpf (0-5)
[2022-02-08 13:44] LABS: Add Urine Culture? Yes
--- NOTE | 2022-02-08 14:55 | P.PN_ITS ---
Subjective Subjective: Today reported pain in thoracic spine, right shoulder to the hospitalist team. While ambulating with PT reported numbness of left hand which subsequently resolved. X-rays of thoracic spine were requested, however, she could not complete all images as shecould not roll with limitation due to pain. Confirmation was made that the patient had completed cervical spine imaging which was negative while in the emergency department. Vitals/I&O/Wt Last Vital Signs Temp 98.0 F 02/08/22 11:43 Pulse 81 02/08/22 11:43 Resp 18 02/08/22 12:48 BP 104/66 02/08/22 11:43 Pulse Ox 94 02/08/22 11:43 02/07/22 02/08/22 02/08/22 22:59 06:59 14:59 Intake Total 150 / 150 1936.667 / 2086.667 1050 / 1050 Output Total 400 / 400 2100 / 2500 2200 / 2200 Balance -250 / -250 -163.333 / -413.333 -1150 / -1150 Weight last 48 hrs Weight 180 lb Weight 175 lb Physical Exam Const: COMMON NORMALS: no acute distress, average body habitus, patient oriented x3 and alert GENERAL APPEARANCE: cooperative and comfortable ORIENTATION/CONSCIOUSNESS: Yes awake HENMT: COMMON NORMALS: normocephalic and atraumatic HEAD & SCALP: normocephalic and atraumatic Eye: GENERAL EYE: appearance normal, both eyes and all related structures Chest: COMMONS NORMALS: normal inspection of the chest Resp: COMMON NORMALS: normal respiratory effort EFFORT & INSPECTION: Yes able to speak in complete sentences and Yes symmetric chest movement Extremity: RIGHT LOWER EXTREMITY: Yes hip joint (No bruising noted) LEFT LOWER EXTREMITY: Yes hip joint Left hip: Yes inspection (Dressing is dry and intact), Yes palpation (Tender to palpation) and Yes neurovascular exam (Intact distally) Neuro: COMMON NORMALS: patient oriented x3 SENSORIUM/ORIENTATION: Yes alert Psych: COMMON NORMALS: mental status grossly normal APPEARANCE: Yes grossly normal ATTITUDE: Yes calm and Yes engaged ATTENTION/CONCENTRATION: Yes attention grossly intact Skin: COMMON NORMALS: no rashes or lesions noted GENERAL SKIN EXAM: no rashes or lesions noted Urinary Catheter Management: Arana: Cath Placed During This Visit: yes Reason for Continuing Indwelling Catheter: Required Immobilization for Trauma or Surgery or Anesthesia Urinary Catheter Date of Insertion: 02/07/22 Urinary Catheter Time of Insertion: 22:42 Data : 02/08/22 02:48 02/08/22 02:48 Xray Ortho: I personally reviewed and interpreted this imaging study as follows: My impression: X-rays were obtained 3 views of the right shoulder. These were personally interpreted by me. There is no evidence of acute fracture or dislocation. Humeral head does appear to be slightly high riding, and there is slight degenerative change and narrowing of the acromioclavicular joint. There are no significant acute findings. A&P Assessment and plan (1) Closed intertrochanteric fracture of left hip: Patient has a closed intertrochanteric left hip fracture with severe comminution. This occurred after she was thrown from a horse. She was seen and evaluated by the hospitalist team for admission. Patient is postop day 1 following open reduction internal fixation utilizing a gamma nail of a very comminuted and displaced left intertrochanteric and subtrochanteric hip fracture. She had significant difficulty with physical therapy today. She also had pain in her shoulder with negative imaging studies. She had some left hand numbness which resolved. She also complained of some thoracic spine pain, but she was unable to complete these images. She has no other neurologic deficits described. Secondary to the significance of this fracture in a 66-year-old woman without obvious direct impact onto this hip, bone marrow was taken from the reamings into the femoral head for evaluation of possible pathologic issue. The patient has no known history of pathologic processes, however. Status: Acute (2) Closed subtrochanteric fracture of left femur: Status: Acute Attestations Medical Necessity Statement*: Patient requires ongoing inpatient care following open reduction internal fixation of left hip fracture after being thrown from a horse. Coding Level of Care Code Acute Mini Bar Attendant for Sobeida Vigil Diagnoses Closed intertrochanteric fracture of left hip S72.142A Closed subtrochanteric fracture of left femur S72.22XA
--- NOTE | 2022-02-08 19:58 | PM.PN ---
Subjective Subjective: Today reported pain in thoracic spine, right shoulder. While ambulating with PT reported numbness of left hand. Resolved. X-rays of thoracic spine were requested, however, she could not complete old images, could not roll with limitation due to pain. Vitals/I&O/Wt Last Vital Signs Temp 98.1 F 02/08/22 19:48 Pulse 87 02/08/22 19:48 Resp 14 02/08/22 19:48 BP 112/65 02/08/22 19:48 Pulse Ox 97 02/08/22 19:48 02/08/22 02/08/22 02/08/22 06:59 14:59 22:59 Intake Total 1936.667 / 2086.667 1050 / 1050 400 / 1450 Output Total 2100 / 2500 2200 / 2200 900 / 3100 Balance -163.333 / -413.333 -1150 / -1150 -500 / -1650 Weight last 48 hrs Weight 81.647 kg Weight 79.379 kg Physical Exam Narrative: Friend at bedside Const: COMMON NORMALS: alert GENERAL APPEARANCE: cooperative ORIENTATION/CONSCIOUSNESS: Yes awake HENMT: COMMON NORMALS: normocephalic, EAC's normal, Normal external nose present and moist oral mucous membranes HEAD & SCALP: normocephalic NOSE: Normal external nose present EXTERNAL AUDITORY CANAL: EAC's normal Neck/C-Spine: COMMON NORMALS: no meningeal signs Chest: CHEST: Yes Symmetrical chest wall rise Resp: COMMON NORMALS: clear to auscultation bilaterally AUSCULTATION: clear to auscultation bilaterally Cardio: COMMON NORMALS: regular rate, regular rhythm and No murmurs present (Cardio) RATE: regular rate RHYTHM: regular rhythm GI: COMMON NORMALS: Normal to inspection, nondistended, normoactive bowel sounds present, Soft to palpation and non-tender PALPATION: Yes Soft to palpation Extremity: COMMON NORMALS: no pedal edema OTHER: Good ROM R shoulder, moving spontaneously, no pain with flexion, extension, abduction. No swelling or erythema. L hip wounds without bleeding or drainage. Left hip faint bruising. Neuro: COMMON NORMALS: moves all extremities SENSORIUM/ORIENTATION: Yes alert MENINGEAL SIGNS: Yes no meningeal signs Psych: COMMON NORMALS: mental status grossly normal Skin: COMMON NORMALS: no wounds RASHES: no rashes Urinary Catheter Management: Arana: Cath Placed During This Visit: yes Reason for Continuing Indwelling Catheter: Required Immobilization for Trauma or Surgery or Anesthesia Urinary Catheter Date of Insertion: 02/07/22 Urinary Catheter Time of Insertion: 22:42 Data : 02/08/22 02:48 02/08/22 02:48 A&P Assessment and plan (1) Fall from horse: Thoracic spine pain. X-rays requested, could not complete studies. We will try to see if anything obvious visible on the completed x-rays, otherwise in case pain persist consider additional images. Right shoulder pain reported while using walker. X-ray obtained, unremarkable. Good range of motion. No erythema, swelling. Left hand numbness transient while using walker. Resolved. Follow-up symptoms. C-spine CT without evidence of acute cervical spine traumatic injury. Left hip fracture repaired. Rehabilitation recommended based on physical therapy evaluation. Arrangement being made with . Status: Acute (2) Closed intertrochanteric fracture of left hip: Status post repair Pain control. Reassess hemoglobin. Tomorrow consider removal of Arana. On aspirin Status: Acute (3) Obstructive sleep apnea on CPAP: Status: Chronic (4) Sjogrens syndrome: Definitely has keratoconjunctivitis. Has arthritis of multiple joints but not clear on whether or not it has been determined that these are inflammatory arthritides. Status: Chronic (5) Hypothyroidism: Chronically on levothyroxine Status: Chronic (6) BMI 34.0-34.9,adult: Status: Acute Plan Possible UTI: 40-55 WBC, positive leukocyte esterase. Urine culture pending. Ceftriaxone for now. Attestations Medical Necessity Statement*: Continue admission for assessment management after a fall off a horse, status post left hip fracture and repair, assessment of other associated symptoms. Coding Level of Care Code Acute Inspector Production Plastic Parts for [employer] Diagnoses Fall from horse V80.010A Closed intertrochanteric fracture of left hip S72.142A Obstructive sleep apnea on CPAP G47.33; Z99.89 Sjogrens syndrome M35.00 Hypothyroidism E03.9 BMI 34.0-34.9,adult Z68.34
[2022-02-08] MEDS: magnesium oxide 400 mg tablet PO (20:46)
[2022-02-08] MEDS: cefTRIAXone 1,000 MG in sodium chloride 0.9% (plus) 50 ML 100 MG IV (20:46)
[2022-02-08] MEDS: acetaminophen 500 mg Tablet 1000 MG PO (21:44)
[2022-02-09 03:27] VITALS: RESP 18
[2022-02-09] MEDS: oxyCODONE 5 mg IR Tab/Cap PO ×2 (03:27→10:48)
[2022-02-09] MEDS: levothyroxine 112 mcg Tablet PO (05:38)
[2022-02-09] MEDS: acetaminophen 500 mg Tablet 1000 MG PO ×2 (05:38→14:59)
[2022-02-09 05:55] LABS: Basophils % 0.3 %; Eosinophils # 0.1 10^3/uL (0.0-0.8); Eosinophils % 1.9 %; Hematocrit 26.9 % (37.0-47.0); Hemoglobin 8.5 g/dL (11.5-15.3); Lymphocytes # 0.6 10^3/uL (0.8-4.8); Lymphocytes % 15.4 %; Mean Corpuscular HGB Conc 31.6 g/dL (30.0-36.0); Mean Corpuscular Hemoglobin 27.9 pg (28.0-34.0); Mean Corpuscular Volume 88.2 fl (81-99); Mean Platelet Volume 10.9 fL (7.4-10.4); Monocytes # 0.5 10^3/uL (0.2-0.9); Monocytes % 13.5 %; Neutrophils # 2.54 10^3/uL (1.8-7.7); Neutrophils % 68.6 %; Nucleated Red Blood Cells % 0 %; Platelet Count 111 10^3/cmm (130-400); Red Blood Count 3.05 10^6/uL (4.1-5.3); Red Cell Distribution Width 12.7 % (12.1-15.1); White Blood Count 3.7 10^3/uL (4.0-10.0)
[2022-02-09 06:28] LABS: Anion Gap 13.3 (5-19); Blood Urea Nitrogen 9 mg/dL (8-23); Calcium 8.5 mg/dL (8.5-10.5); Carbon Dioxide 22 mmol/L (22-29); Chloride 108 mmol/L (98-107); Glucose 119 mg/dL (65-115); Osmolality Calculated 288 mOsm/kg (285-295); Potassium 4.3 mmol/L (3.5-5.1); Sodium 139 mmol/L (136-145)
[2022-02-09 07:33] VITALS: BP 129/75; PULSE 98; RESP 18; TEMP 36.9; O2SAT 95
[2022-02-09] MEDS: lactobacillus 1 Tablet 2 TAB PO (08:45)
[2022-02-09] MEDS: sennosides-docusate Tablet 2 TAB PO (08:45)
[2022-02-09] MEDS: docusate sodium 100 mg Capsule PO (08:46)
[2022-02-09] MEDS: aspirin 325 mg EC Tablet PO (08:46)
[2022-02-09] MEDS: pantoprazole DR 40 mg Tablet PO (08:46)
[2022-02-09] MEDS: calcium carb-vit d 600mg/400unit 1 Tablet 1 EACH PO (08:46)
[2022-02-09] MEDS: CELEcoxib 200 mg Capsule PO (08:46)
[2022-02-09] MEDS: loratadine 10 mg Tablet PO (08:46)
[2022-02-09] MEDS: sennosides-docusate Tablet 1 TAB PO (08:46)
[2022-02-09 10:48] VITALS: RESP 18
--- NOTE | 2022-02-09 11:07 | CT_ITS ---
WS: [id number] CT CHEST ANGIOGRAPHY WITH REFORMATS HISTORY: Persistent chest pain, radiating to the back after fall off TECHNIQUE: Contiguous axial images are obtained through the chest during arterial injection of intrav enous contrast. Images are reconstructed to evaluate the pulmonary arteries. MIP imaging also reviewe d. All CT scans at [facility] use at least one of these dose optimization techniques: automat ed exposure control; mA and/or kV adjustment per patient size (includes targeted exams where dose is matched to clinical indication); or iterative reconstruction. CONTRAST: Omnipaque 350; 64 mL IV. DLP: 507.26 mGy.cm COMPARISON: None available. Suboptimal opacification of the pulmonary arteries. Centrally there is no pulmonary embolism. Within the lobar and distal branches there is significant artifact through the pulmonary arteries. Pulmonary emboli cannot be excluded. Pulmonary artery size is mildly enlarged to 3.2 cm. Mild atherosclerosis aorta. Cardiac chambers are mildly enlarged. No RIGHT heart strain. No LEFT atrial filling defect. No adenopathy. No pneumothorax or pulmonary nodule. Focal area of minimal atelectasis at the RIGHT apex. Mild opacif ication at the RIGHT lung base is atelectasis. There is a healed fracture posteriorly involving the RIGHT ninth rib. Nondisplaced, acute fourth, fif th and sixth rib fractures medially adjacent to the corresponding vertebral bodies. Nondisplaced late ral RIGHT fourth and sixth rib fractures. Spleen and the liver are incompletely visualized in this examination but they do appear large. CT/CT angio chest PE protcl [id number] IMPRESSION: 1. No central pulmonary embolism. 2. Acute nondisplaced RIGHT posterior medial fourth, fifth and sixth rib fract ures. Additional more lateral fractures in the RIGHT fourth and sixth ribs. 3. Subsegmental atelectasis at the RIGHT lung base. 4. No pneumothorax or pulmonary contusion. 5. Liver and spleen appear enlarged but are incompletely visualized on this ex amination. Consider evaluation by ultrasound to evaluate the liver and spleen s ize more accurately.
--- NOTE | 2022-02-09 11:09 | PM.PN ---
Subjective Subjective: She is still in quite a bit of severe pain. Especially when trying to mobilize, but also persistent pain in the head or chest, radiating to the back. Reports that with mobilization despite having the multiple medications on board still in pain, asking for something stronger. Vitals/I&O/Wt Last Vital Signs Temp 98.4 F 02/09/22 07:33 Pulse 98 02/09/22 07:33 Resp 18 02/09/22 10:48 BP 129/75 02/09/22 07:33 Pulse Ox 95 02/09/22 07:33 02/08/22 02/09/22 02/09/22 22:59 06:59 14:59 Intake Total 1263.333 / 2313.333 100 / 2413.333 Output Total 900 / 3100 Balance 363.333 / -786.667 100 / -686.667 Weight last 48 hrs Weight 81.647 kg Physical Exam Narrative: Friend at bedside Const: COMMON NORMALS: alert GENERAL APPEARANCE: cooperative ORIENTATION/CONSCIOUSNESS: Yes awake HENMT: COMMON NORMALS: normocephalic, EAC's normal, Normal external nose present and moist oral mucous membranes HEAD & SCALP: normocephalic NOSE: Normal external nose present EXTERNAL AUDITORY CANAL: EAC's normal Neck/C-Spine: COMMON NORMALS: no meningeal signs Chest: CHEST: Yes Symmetrical chest wall rise Resp: COMMON NORMALS: clear to auscultation bilaterally AUSCULTATION: clear to auscultation bilaterally Cardio: COMMON NORMALS: regular rate, regular rhythm and No murmurs present (Cardio) RATE: regular rate RHYTHM: regular rhythm GI: COMMON NORMALS: Normal to inspection, nondistended, normoactive bowel sounds present, Soft to palpation and non-tender PALPATION: Yes Soft to palpation Extremity: COMMON NORMALS: no pedal edema OTHER: Good ROM R shoulder, moving spontaneously, no pain with flexion, extension, abduction. No swelling or erythema. L hip wounds without bleeding or drainage. Left hip faint bruising. Neuro: COMMON NORMALS: moves all extremities SENSORIUM/ORIENTATION: Yes alert MENINGEAL SIGNS: Yes no meningeal signs Psych: COMMON NORMALS: mental status grossly normal Skin: COMMON NORMALS: no wounds RASHES: no rashes Urinary Catheter Management: Arana: Cath Placed During This Visit: yes Reason for Continuing Indwelling Catheter: Other Urinary Catheter Date of Insertion: 02/07/22 Urinary Catheter Time of Insertion: 22:42 Data : 02/09/22 04:47 02/09/22 04:47 A&P Assessment and plan (1) Fall from horse: Persistent pain, but pain with rising, despite current treatments. We will escalate for now with double dose of hydrocodone with acetaminophen. Nursing staff has been giving medication before working with physical therapy. She also has persistent chest pain radiating to the back and back pain. Discussed with her differential diagnosis, discussed risks and requested CT angiogram of the chest. Thoracic spine pain. X-rays requested, could not complete studies. We will try to see if anything obvious visible on the completed x-rays, otherwise in case pain persist consider additional images. Right shoulder pain reported while using walker. X-ray obtained, unremarkable. Good range of motion. No erythema, swelling. Left hand numbness transient while using walker. Resolved. Follow-up symptoms. C-spine CT without evidence of acute cervical spine traumatic injury. Left hip fracture repaired. Rehabilitation recommended based on physical therapy evaluation. Arrangement being made with . Status: Acute (2) Closed intertrochanteric fracture of left hip: Status post repair Pain not under control. Escalating pain management. Reassess hemoglobin. Tomorrow consider removal of Arana. On aspirin Status: Acute (3) Obstructive sleep apnea on CPAP: Status: Chronic (4) Sjogrens syndrome: Definitely has keratoconjunctivitis. Has arthritis of multiple joints but not clear on whether or not it has been determined that these are inflammatory arthritides. Status: Chronic (5) Hypothyroidism: Chronically on levothyroxine Status: Chronic (6) BMI 34.0-34.9,adult: Status: Acute (7) Pancytopenia: Decreased across all cell lines. Partially possibly secondary to IV hydration, fluids have been held. Reassess blood counts. Partially also blood loss after fracture. Status: Acute Plan Possible UTI: 40-55 WBC, positive leukocyte esterase. Urine culture pending. Ceftriaxone for now. Attestations Medical Necessity Statement*: Continue admission for additional assessment following fall off a horse, spinal chest pain rating into the back, optimization of pain control to allow for mobilization, therapy, and disposition planning and arrangements. Coding Level of Care Code Acute Skid Road Worker for Sobeida Vigil Diagnoses Fall from horse V80.010A Closed intertrochanteric fracture of left hip S72.142A Obstructive sleep apnea on CPAP G47.33; Z99.89 Sjogrens syndrome M35.00 Hypothyroidism E03.9 BMI 34.0-34.9,adult Z68.34 Pancytopenia D61.818
[2022-02-09 12:34] VITALS: BP 129/85; PULSE 101; TEMP 37.1; O2SAT 95
--- NOTE | 2022-02-09 14:24 | P.PN_ITS ---
Subjective Subjective: The patient states that she would like to be discharged to care home. She also notes that she has emails from the facility in [place] that they will accept her under a waiver. She is requiring a CTA prior to discharge secondary to ongoing chest pain from her fall. This was ordered by hospitalist and will be completed prior to her discharge. Medications: Reviewed: Yes Vitals/I&O/Wt Last Vital Signs Temp 98.8 F 02/09/22 12:34 Pulse 101 H 02/09/22 12:34 Resp 18 02/09/22 10:48 BP 129/85 02/09/22 12:34 Pulse Ox 95 02/09/22 12:34 02/08/22 02/09/22 02/09/22 22:59 06:59 14:59 Intake Total 1263.333 / 2313.333 100 / 2413.333 Output Total 900 / 3100 1750 / 1750 Balance 363.333 / -786.667 100 / -686.667 -1750 / -1750 Weight last 48 hrs Weight 180 lb Physical Exam Const: COMMON NORMALS: no acute distress, average body habitus, patient oriented x3 and alert GENERAL APPEARANCE: cooperative and comfortable ORIENTATION/CONSCIOUSNESS: Yes awake HENMT: COMMON NORMALS: normocephalic and atraumatic HEAD & SCALP: normocephalic and atraumatic Eye: GENERAL EYE: appearance normal, both eyes and all related structures Chest: COMMONS NORMALS: normal inspection of the chest Resp: COMMON NORMALS: normal respiratory effort EFFORT & INSPECTION: Yes able to speak in complete sentences and Yes symmetric chest movement Extremity: LEFT LOWER EXTREMITY: Yes hip joint (Ecchymosis is now present.) Left hip: Yes inspection (Dressings are dry and intact.), Yes ROM (Not evaluated.) and Yes neurovascular exam (Intact distally.) Neuro: COMMON NORMALS: patient oriented x3 SENSORIUM/ORIENTATION: Yes alert Psych: COMMON NORMALS: mental status grossly normal APPEARANCE: Yes grossly normal ATTITUDE: Yes calm and Yes engaged ATTENTION/CONCENTRATION: Yes attention grossly intact Skin: COMMON NORMALS: no rashes or lesions noted GENERAL SKIN EXAM: no rashes or lesions noted Urinary Catheter Management: Arana: Cath Placed During This Visit: yes Reason for Continuing Indwelling Catheter: Other Urinary Catheter Date of Insertion: 02/07/22 Urinary Catheter Time of Insertion: 22:42 Data : 02/09/22 04:47 02/09/22 04:47 Other data: Pathology demonstrates benign bone spicules with no evidence of issues of concern. A&P Assessment and plan (1) Closed intertrochanteric fracture of left hip: Patient has a closed intertrochanteric left hip fracture with severe comminution. This occurred after she was thrown from a horse. She was seen and evaluated by the hospitalist team for admission. Patient is postop day 2 following open reduction internal fixation utilizing a gamma nail of a very comminuted and displaced left intertrochanteric and subtrochanteric hip fracture. She also had pain in her shoulder with negative imaging studies. She had some left hand numbness which resolved. She also complained of some thoracic spine pain, but she was unable to complete these images, CTA has been ordered for evaluation. She has no other neurologic deficits described. The patient continues to work with physical therapy, and in fact, she feels ready for discharge to care home so that she may further work on improving her functional status. Secondary to the significance of this fracture in a 66-year-old woman without obvious direct impact onto this hip, bone marrow was taken from the reamings into the femoral head for evaluation of possible pathologic issue. The patient has no known history of pathologic processes, however. Pathology presents today as negative for any sort of malignancy. It was felt that it demonstrated benign spicules of bone. Status: Acute (2) Closed subtrochanteric fracture of left femur: Status: Acute Attestations Medical Necessity Statement*: Patient will likely be discharged to care home pending results of CTA. Coding Level of Care Code Acute Advertising Statistical Clerk for [facility] Fwd Exam Comprehensive Diagnoses Closed intertrochanteric fracture of left hip S72.142A Closed subtrochanteric fracture of left femur S72.22XA
[2022-02-09] MEDS: iohexol 350 mg/mL 100 mL Btl IV (14:47)
[2022-02-09 14:57] LABS: SARS Covid-2 Antigen Negative (Negative)
[2022-02-09] MEDS: HYDROcodone-acetaminophen 5-325 mg Tablet 2 TAB PO ×2 (15:03→19:14)
[2022-02-09 15:09] VITALS: BP 159/82; PULSE 101; RESP 18; TEMP 37.3; O2SAT 96
--- NOTE | 2022-02-09 16:32 | P.DS_ITS ---
Discharge Providers Date of Admission: 02/07/22 11:48 Date of Discharge: February 09, 2022 Attending Provider at Admission: Day Vargas MD Attending Provider at Discharge: Santi Hazel Diagnoses at Discharge Discharge Diagnosis (1) Closed intertrochanteric fracture of left hip: Status: Acute (2) Closed subtrochanteric fracture of left femur: Status: Acute Reason for Visit Reason for Visit: fall from horse/ L leg injury Hospital Course Hospital Course Pleasant 66-year-old lady was assessed in ER after being bucked off her horse, with subsequent left leg pain with finding of left intertrochanteric hip fracture, severely displaced, comminuted with a bigger subtrochanteric component intraoperatively there initially appreciated, severe lateral displacement of femoral shaft, underwent open reduction internal fixation left intertrochanteric and subtrochanteric femur fractures with bone biopsy to additionally assess for possibility of pathologic fracture. Due to pain in right shoulder underwent x-rays of the shoulder which were unremarkable, with improvement in symptoms. Still having persistent pain in her chest and back, assessed with CT angiogram with finding of acute nondisplaced right posterior medial fourth, fifth and sixth rib fractures, additionally more lateral fractures and right fourth and sixth ribs. Subsegmental atelectasis in the right lung base. No pneumothorax or pulmonary contusion. Possible mild enlargement of liver and spleen. She is encouraged to continue incentive spirometry with discussion resolved to prevent pneumonia, as well as pain control is continued, with up titration to 2 tablets of 5-325 hydrocodone-acetaminophen every 4 hours as needed in case of severe pain, in addition to Tylenol, naproxen. As she would benefit from additional rehabilitation she was accepted for continued care at group home facility. Please low blood counts at next visit as she is noted to have mild pancytopenia after IV hydration, WBC count 3.7, hemoglobin 9.5, platelets 111. In case without improvement, please consider additional evaluation. UA with possible UTI, 40-55 WBC, urine cultures pending. No difficulties with urination. For now empirically on cefdinir. Additional health problems include FREDDIE, on CPAP Sjorgen syndrome Hypothyroidism Physical Exam Narrative: Friend at bedside Const: COMMON NORMALS: alert GENERAL APPEARANCE: cooperative ORIENTATION/CONSCIOUSNESS: Yes awake HENMT: COMMON NORMALS: normocephalic, EAC's normal, Normal external nose present and moist oral mucous membranes HEAD & SCALP: normocephalic NOSE: Normal external nose present EXTERNAL AUDITORY CANAL: EAC's normal Neck/C-Spine: COMMON NORMALS: no meningeal signs Chest: CHEST: Yes Symmetrical chest wall rise Resp: COMMON NORMALS: clear to auscultation bilaterally AUSCULTATION: clear to auscultation bilaterally Cardio: COMMON NORMALS: regular rate, regular rhythm and No murmurs present (Cardio) RATE: regular rate RHYTHM: regular rhythm GI: COMMON NORMALS: Normal to inspection, nondistended, normoactive bowel sounds present, Soft to palpation and non-tender PALPATION: Yes Soft to palpation Extremity: COMMON NORMALS: no pedal edema OTHER: Good ROM R shoulder, moving spontaneously, no pain with flexion, extension, abduction. No swelling or erythema. L hip wounds without bleeding or drainage. Left hip faint bruising. Neuro: COMMON NORMALS: moves all extremities SENSORIUM/ORIENTATION: Yes alert MENINGEAL SIGNS: Yes no meningeal signs Psych: COMMON NORMALS: mental status grossly normal Skin: COMMON NORMALS: no wounds RASHES: no rashes Urinary Catheter Management: Arnaa: Cath Placed During This Visit: yes Reason for Continuing Indwelling Catheter: Other Urinary Catheter Date of Insertion: 02/07/22 Urinary Catheter Time of Insertion: 22:42 Discharge Data Studies Completed and Pending Completed Studies During Hospitalization Category Date Time Status CT angio chest PE protcl [id number] Routine Cat Scan 02/09/22 11:[address] cervical spin wo con* [id number] Stat Cat Scan 02/07/22 10:[address] head wo con* 81301 Stat Cat Scan 02/07/22 10:44 Completed XR hip LT 1V wo/w pel [id number] Routine Exams 02/07/22 21:48 Completed XR hip LT 2-3V wo/w pel* [id number] Stat Exams 02/07/22 10:44 Completed XR shoulder RT min 2V* [id number] Routine Exams 02/08/22 09:05 Completed Pathology: Surgical [PTH] Routine Pth 02/07/22 22:21 Completed Pending at discharge Category Date Time Status Basic Metabolic Panel AM LABS Lab 02/10/22 04:00 Ordered Basic Metabolic Panel AM LABS Lab 02/11/22 04:00 Ordered Complete Blood Count w/Auto AM LABS Lab 02/10/22 04:00 Ordered Complete Blood Count w/Auto AM LABS Lab 02/11/22 04:00 Ordered Urine Culture Routine Lab 02/08/22 13:10 Results Radiology Impressions Cervical Spine CT 02/07/22 10:44 IMPRESSION: 1. No CT evidence of acute cervical spine traumatic injury. 2. Additional findings, as above. Head CT 02/07/22 10:[address]: 1[address] evidence of acute intracranial pathology. 2. Additional findings, as above. Hip/Pelvis X-Ray 02/07/22 10:44 Impression: Comminuted intertrochanteric fracture of the left hip. Hip X-Ray 02/07/22 21:48 IMPRESSION: Intraoperative imaging during fixation and repair of the comminuted displaced LEFT hip fracture. Shoulder X-Ray 02/08/22 09:05 IMPRESSION: No acute findings. Chest CTA 02/09/22 11:07 IMPRESSION: 1. No central pulmonary embolism. 2. Acute nondisplaced RIGHT posterior medial fourth, fifth and sixth rib fractures. Additional more lateral fractures in the RIGHT fourth and sixth ribs. 3. Subsegmental atelectasis at the RIGHT lung base. 4. No pneumothorax or pulmonary contusion. 5. Liver and spleen appear enlarged but are incompletely visualized on this examination. Consider evaluation by ultrasound to evaluate the liver and spleen size more accurately. Laboratory Results WBC 3.7 10^3/uL (4.0-10.0) L 02/09/22 04:47 RBC 3.05 10^6/uL (4.1-5.3) L 02/09/22 04:47 Hgb 8.5 g/dL (11.5-15.3) L 02/09/22 04:47 Hct 26.9 % (37.0-47.0) L 02/09/22 04:47 MCV 88.2 fl (81-99) 02/09/22 04:47 MCH 27.9 pg (28.0-34.0) L 02/09/22 04:47 MCHC 31.6 g/dL (30.0-36.0) 02/09/22 04:47 RDW 12.7 % (12.1-15.1) 02/09/22 04:47 Plt Count 111 10^3/cmm (130-400) L 02/09/22 04:47 MPV 10.9 fL (7.4-10.4) H 02/09/22 04:47 Neut % (Auto) 68.6 % 02/09/22 04:47 Lymph % (Auto) 15.4 % 02/09/22 04:47 [place] % (Auto) 13.5 % 02/09/22 04:47 Eos % (Auto) 1.9 % 02/09/22 04:47 Baso % (Auto) 0.3 % 02/09/22 04:47 Neut # (Auto) 2.54 10^3/uL (1.8-7.7) 02/09/22 04:47 Lymph # (Auto) 0.6 10^3/uL (0.8-4.8) L 02/09/22 04:47 [place] # (Auto) 0.5 10^3/uL (0.2-0.9) 02/09/22 04:47 Eos # (Auto) 0.1 10^3/uL (0.0-0.8) 02/09/22 04:47 Baso # (Auto) 0.0 10^3/uL (0.0-0.1) 02/09/22 04:47 Nucleated RBC % (auto) 0 % 02/09/22 04:47 Nucleated RBCs # 0.0 /100WBC 02/09/22 04:47 PT 13.50 SECONDS (12.1-14.9) 02/07/22 11:42 INR 1.00 (0.8-1.2) 02/07/22 11:42 APTT 33.3 SECONDS (23.9-36.7) 02/07/22 11:42 Sodium 139 mmol/L (136-145) 02/09/22 04:47 Potassium 4.3 mmol/L (3.5-5.1) 02/09/22 04:47 Chloride 108 mmol/L (98-107) H 02/09/22 04:47 Carbon Dioxide 22 mmol/L (22-29) 02/09/22 04:47 Anion Gap 13.3 (5-19) 02/09/22 04:47 BUN 9 mg/dL (8-23) 02/09/22 04:47 Creatinine 0.6 mg/dL (0.5-0.9) 02/09/22 04:47 GFR Calculation 100.0 mL/min (90-130) 02/09/22 04:47 Glucose 119 mg/dL (65-115) H 02/09/22 04:47 Calculated Osmolality 288 mOsm/kg (285-295) 02/09/22 04:47 Calcium 8.5 mg/dL (8.5-10.5) 02/09/22 04:47 Total Bilirubin 0.3 mg/dL (0.15-1.2) 02/07/22 10:32 AST 30 U/L (0-32) 02/07/22 10:32 ALT 29 U/L (0-33) 02/07/22 10:32 Alkaline Phosphatase 103 IU/L (35-105) 02/07/22 10:32 Total Protein 7.6 g/dL (6.6-8.7) 02/07/22 10:32 Albumin 4.8 g/dL (3.5-5.2) 02/07/22 10:32 Globulin 2.8 g/dL (1.3-4.6) 02/07/22 10:32 Urine Color Yellow (Yellow) 02/08/22 13:10 Urine Appearance Sl hazy (CLEAR) 02/08/22 13:10 Urine pH 6 (5-7) 02/08/22 13:10 Ur Specific [place] 1.015 (1.005-1.030) 02/08/22 13:10 Urine Protein Neg (Negative) 02/08/22 13:10 Urine Glucose (UA) Norm (Normal) 02/08/22 13:10 Urine Ketones Negative (Negative) 02/08/22 13:10 Urine Blood Neg (Negative) 02/08/22 13:10 Urine Nitrate Negative (Negative) 02/08/22 13:10 Urine Bilirubin Neg (Negative) 02/08/22 13:10 Urine Urobilinogen Norm mg/dL (Negative) 02/08/22 13:10 Ur Leukocyte Esterase 1+ (Negative) H 02/08/22 13:10 Urine RBC 0-4 /hpf (0-2) H 02/08/22 13:10 Urine WBC 40-55 /hpf (0-5) H 02/08/22 13:10 Ur Squamous Epith Cells 0-4 /hpf (0-5) H 02/08/22 13:10 Amorphous Sediment Not Reportable 02/08/22 13:10 Urine Bacteria Tntc /hpf (NONE) 02/08/22 13:10 SARS-CoV-2 Ag (Rapid) Negative (Negative) 02/09/22 13:50 Vitals Last Vital Signs Temp 99.2 F 02/09/22 15:09 Pulse 101 H 02/09/22 15:09 Resp 18 02/09/22 15:09 BP 159/82 02/09/22 15:09 Pulse Ox 96 02/09/22 15:09 Discharge Plan Discharge Patient Disposition: Xfer SNF Condition: Stable Prescriptions: New cefdinir 300 mg capsule 300 mg PO BID 7 Days Qty: 14 0RF aspirin 325 mg Tablet,Delayed Release (Dr/Ec) 325 mg PO DAILY Qty: 14 0RF hydrocodone-acetaminophen 5-325 mg Tablet 2 tab PO Q4H PRN (Reason: Moderate To Severe Pain) Qty: 16 0RF Stool Softener-Laxative 8.6-50 mg Tablet 1 tab PO BID PRN (Reason: constipation) Qty: 30 0RF Continued naproxen 375 mg Tablet 375 mg PO BID 0RF acetaminophen 500 mg Tablet 1,000 mg PO BID 0RF omeprazole 20 mg Capsule,Delayed Release(Dr/Ec) 20 mg PO DAILY 0RF Claritin 10 mg Tablet 10 mg PO DAILY 0RF Synthroid 112 mcg tablet 112 mcg PO QAM 0RF CoQ-10 100 mg Capsule 100 mg PO DAILY 0RF Osteo Bi-Flex 250-200 mg Tablet 2 tab PO DAILY 0RF Probiotic with Prebiotic 1 billion-250 cell-mg Capsule 2 cap PO DAILY 0RF Adult Multivitamin Gummies 200 mcg Tablet,Chewable 2 tab PO DAILY 0RF PreserVision AREDS-2 250-90-40-1 mg Capsule 1 tab PO BID 0RF magnesium oxide 200 mg magnesium Tablet,Chewable 400 mg PO BEDTIME 0RF [place] 3 1 cap PO DAILY 0RF Discharge Orders: Discharge Order (Routine); Ordered 02/09/22 Ordered By: Santi Hazel Referrals: Primary, provider [Other] - 4-7 days (Please call you primary care provider and schedule an appointment to be seen within one week.) Joselyn Harper MD [Physician] - 03/26/22 10:30 am Discharge Activity: Limit activity as instructed, Use walker/crutches as instructed and As per PT/OT instructions Patient Instructions: Hydrocodone/Acetaminophen (By mouth), Aspirin (By mouth), Cefdinir (By mouth), Opioid Safety (GEN), ORIF of Hip Fracture (GEN) Activity Restrictions/Additional Instructions: Please remain touchdown weightbearing on left lower extremity secondary to complex unstable hip fracture. Dressings may be changed as needed. Please follow-up with me in approximately 4 to 6 weeks. Sooner if there are any issues. Please continue sent to spirometer due to multiple rib fractures to prevent pneumonia. Rib fractures noted in ribs 4, 5, 6 closer to median in the back, and more laterally in the ribs 4 and 6. Follow-up with your primary doctor regarding pain in various locations and rib fractures In case back pain is not improving, discuss further diagnostic assessment with MRI. Please note that urinary culture is pending. Please follow-up on final results with your primary doctor. Please have your primary doctor follow-up your blood counts. With IV hydration you are noted to have mild decrease in all cell counts. Have your doctor follow-up for resolution, if not resolved may need additional investigation. Continue CPAP for sleep apnea. 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 Discharge Attestations Time Spent in Discharge Care*: greater than 30 min Quality Metrics Clinical Quality Measures [ No reported AMI, CVA or VTE this stay] Coding Level of Care Code Acute g [facility] note Diagnoses Closed intertrochanteric fracture of left hip S72.142A Closed subtrochanteric fracture of left femur S72.22XA
--- NOTE | 2022-02-09 17:04 | PC.NURSE ---
Report called to [facility] in [facility]. Verbal report was gave to VALDEZ Etienne. Awaiting EMS to pick patient up to transport
== END 2022-02-09 19:20 | disposition skilled nursing facility (03) | DRG 478 ==
LOC: ER 12:47 → MEDSURG 12:57
PROVIDERS: Specialist; Admitting Provider Hospitalist; Emergency Provider Family Medicine; Visit Provider Internal Medicine
PROC: (CPT 27245; principal; 2022-02-07 16:50)
DX: S72.142A Displaced intertrochanteric fracture of left femur, initial encounter for closed fracture (principal); S22.41XA Multiple fractures of ribs, right side, initial encounter for closed fracture; D61.818 Other pancytopenia; N39.0 Urinary tract infection, site not specified; S72.22XA Displaced subtrochanteric fracture of left femur, initial encounter for closed fracture; V80.010A Animal-rider injured by fall from or being thrown from horse in noncollision accident, initial encounter; G47.33 Obstructive sleep apnea (adult) (pediatric); M35.00 Sjogren syndrome, unspecified; E03.9 Hypothyroidism, unspecified
CPT/HCPCS: 36415; 51702; 70450; 71275; 72125; 73030; 73501; 73502; 76000; 80048; 80053; 81001; 85025; 85610; 85730; 87086; 87426; 88307; 88311; 93005; 96374; 96375; 96376; 97110; 97161; 97166; 97530; 97535; 99285; C1713; C1776; J0690; J0696; J2175; J2270; J2370; J2405; J2704; J3010; J7030; Q9967

== ENCOUNTER → 2022-03-08 10:48 | Outpatient (BNVA) | payer MEDICARE, OTHER, BC, SELFPAY | PROVIDERS: Visit Provider Nurse Practitioner Family | DX: Z98.890 Other specified postprocedural states (principal); S72.142A Displaced intertrochanteric fracture of left femur, initial encounter for closed fracture; X58.XXXA Exposure to other specified factors, initial encounter | CPT/HCPCS: 73552 ==

== ENCOUNTER → 2022-04-05 10:41 | Outpatient (BNVA) | payer MEDICARE, OTHER, BC, SELFPAY | PROVIDERS: Visit Provider Nurse Practitioner Family | DX: X58.XXXA Exposure to other specified factors, initial encounter (principal); S72.142A Displaced intertrochanteric fracture of left femur, initial encounter for closed fracture | CPT/HCPCS: 73552; 99213 ==

== ENCOUNTER → 2022-05-07 09:43 | Outpatient (BNVA) | payer MEDICARE, OTHER, BC, SELFPAY | PROVIDERS: Visit Provider Specialist | DX: S72.142P Displaced intertrochanteric fracture of left femur, subsequent encounter for closed fracture with malunion (principal); X58.XXXD Exposure to other specified factors, subsequent encounter | CPT/HCPCS: 73502; 99213 ==